=== PATIENT | female | born 1990 | race Caucasian/White ===

== ENCOUNTER 2018-05-03 10:06 | Emergency (ER) | payer BC, MEDICAID ==
[2018-05-03] MEDS ORDERED: 0.9 % SODIUM CHLORIDE 1,000 ML BAG IV ONE (10:11)
[2018-05-03 10:30] LABS: BASO % 0.4 % (0-6); EOS % 2.2 % (0-6); HEMATOCRIT 41.4 % (35.0-47.0); HEMOGLOBIN 14.5 gm/dl (11.6-16.0); LYMPH % 16.2 % (16-45); MEAN CELL VOLUME 83.1 fl (81-97); MEAN CORPUSCULAR HEMOGLOBIN 29.1 pg (27-33); MEAN PLATELET VOLUME 11.4 fl (7.4-10.4); MONO % 4.2 % (0-9); PLATELET COUNT 191 K/uL (130-400); RED BLOOD COUNT 4.98 M/uL (3.80-5.40); RED CELL DISTRIBUTION WIDTH 12.4 % (11.5-14.5); WHITE BLOOD COUNT W/O DIFF 11.6 K/uL (4.2-12.2)
--- NOTE | 2018-05-03 10:30 | Emergency Department Record ---
History of Present Illness - General Chief Complaint: Abdominal Pain Stated Complaint: LOWER ABD PAIN Time Seen by Provider: 05/03/18 10:09 Source: Patient, Family Mode of Arrival: Ambulatory Limitations: No limitations - History of Present Illness Initial Comments: 28 yo female presents with lower abdominal pain for about two days. She is undergoing IVF. She discussed her symptoms with her doctor and was instructed to be evaluated in the ED. The onset of the pain was noon yesterday. The pain initially started severe and has gradually decreased since that time. No vaginal bleeding. No vomiting or diarrhea. She is taking Tylenol for the pain. No fevers. The pain goes across the lower abdomen but is greatest on the right. Last menstrual bleeding was 3 months ago. She has been undergoing IVF since November through the of . The patient has known endometriosis that has been treated in [place] as well. MD Complaint: Abdominal pain Onset/Timin -: Days(s) (2) Location: LLQ, RLQ Radiation: Back Severity: Moderate Severity scale (1-10): 6 Quality: Other Consistency: Constant Improves With: Rest Worsens With: Movement Associated Symptoms: Nausea - Related Data LMP (females 10-50): 3 months ago Patient : No Home Medications Medication Instructions Recorded Confirmed Last Taken Cabergoline 2 tab-cap 05/03/18 2 Days Ago ~05/01/18 Leuprolide Acetate [Lupron Depot 3.75 mg IM 05/03/18 1 Month Ago ([place])] ~04/02/18 Levothyroxine Sodium [Synthroid] 88 mcg PO 05/03/18 1 Day Ago ~05/02/18 Menotropins [Menopur] 150 units 05/03/18 1 Day Ago ~05/02/18 Previous Rx's Medication Instructions Recorded Ondansetron [Zofran Odt] 4 mg PO Q8H #20 tab.rapdis 05/03/18 Allergies Allergy/AdvReac Type Severity Reaction Status Date / Time Sulfa (Sulfonamide Allergy NEUROTOXICI Verified 05/03/18 10:20 Antibiotics) TY Travel Screening - Travel/Exposure Within Last 30 Days Have you traveled within the last 30 days?: No Review of Systems Constitutional: Denies: Chills, Fever, Malaise, Weakness Eyes: Denies: Eye discharge ENT: Denies: Congestion, Throat pain Respiratory: Denies: Cough, Dyspnea, Hemoptysis, Wheezes Cardiovascular: Denies: Chest pain, Palpitations, Syncope Endocrine: Denies: Fatigue, Polydipsia, Polyuria Gastrointestinal: Reports: Abdominal pain. Denies: Diarrhea, Nausea, Vomiting Genitourinary: Reports: As per HPI. 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 negative: Conjunctival injection, Scleral icterus - ENT ENT exam: Normal exam, Mucous membranes moist Ear exam: Normal external inspection Nasal Exam: Normal inspection Mouth exam: Normal external inspection - Neck Neck exam: Normal inspection - Respiratory Respiratory exam: Normal lung sounds bilaterally. negative: Respiratory distress - Cardiovascular Cardiovascular Exam: Regular rate, Normal rhythm, Normal heart sounds - GI/Abdominal GI/Abdominal exam: Soft, Tenderness - Rectal Rectal exam: Deferred - Extremities Extremities exam: Normal inspection - Back Back exam: Reports: Normal inspection, Full ROM. Denies: Rash noted - Neurological Neurological exam: Alert, Oriented X3 - Psychiatric Psychiatric exam: Normal affect, Normal mood. negative: Agitated, Anxious - Skin Skin exam: Dry, Intact, Normal color, Warm Course Vital Signs 05/03/18 10:09 Temperature 98.4 F Pulse Rate 95 H Respiratory 20 Rate Blood Pressure 114/79 Pulse Ox 100 - Reevaluation(s) Reevaluation #1: 05/03/18 10:47 The CBC, CMP and UA were reviewed. No acute process The UCG is negative 05/03/18 11:08 The UA is negative The Wet Prep is negative 05/03/18 12:13 The patient was updated on the labs, UA, and wet prep She is awaiting the US report She requested Tylenol for pain 05/03/18 12:33 The TV pelvic US was reviewed. 9.8cm right hemorrhagic ovarian cyst or endometrioma in the right adnexa. No torsion. Small amount of FF. 05/03/18 12:59 The information was provided to the [facility] hot dog vender Mara. She will discuss with the patient's physician and call back. 05/03/18 13:08 Mara RN called back after discussion with Dr Parry. The patient will be contacted again this afternoon by Dr Parry to arrange further plan of follow up. Medical Decision Making - Lab Data Result diagrams: 05/03/18 10:15 05/03/18 10:15 Disposition Disposition: Discharge Clinical Impression: Pelvic pain, Hemorrhagic cyst of right ovary Ovarian cyst Qualifiers: Laterality: right Qualified Code(s): N83.201 - Unspecified ovarian cyst, right side Disposition: Home, Self-Care Condition: (1) Good Instructions: Ovarian Cyst (ED) Additional Instructions: Call your doctor for the next available follow up appointment and take a copy of the ultrasound that was performed today Be seen immediately for a recheck if worse, any new concerns or questions Take the prescriptions provided as directed Review this ER visit and the tests performed with your fertility doctor Prescriptions: Ondansetron [Zofran Odt] 4 mg PO Q8H #20 tab.rapdis Forms: Patient Portal Access Time of Disposition: 13:09 Quality - Quality Measures Quality Measures: N/A - Blood Pressure Screening Does Patient Have Any of the Following: No Blood Pressure Classification: Normal BP Reading Systolic Measurement: 114 Diastolic Measurement: 79 Screening for High Blood Pressure: < Normal BP, F/U Not Required > [G8783]
[2018-05-03 10:42] LABS: BLOOD UREA NITROGEN 17 mg/dL (6-20); CREATININE 0.7 mg/dL (0.5-0.9); EST GLOMERULAR FILTRATION RATE > 60 mL/min; LIPASE 29 U/L (13-60); TOTAL PROTEIN 7.5 g/dL (6.6-8.7)
[2018-05-03 10:43] LABS: URINE APPEARANCE CLEAR; URINE BILIRUBIN NEGATIVE (NEGATIVE); URINE BLOOD NEGATIVE (NEGATIVE); URINE COLOR YELLOW; URINE GLUCOSE (UA) NEGATIVE (NEGATIVE); URINE KETONE NEGATIVE (NEGATIVE); URINE LEUKOCYTE ESTERASE NEGATIVE (NEGATIVE); URINE NITRITE NEGATIVE (NEGATIVE); URINE PROTEIN NEGATIVE (NEGATIVE); URINE UROBILINOGEN 0.2 E.U./dL (0.20 - 1.00)
[2018-05-03 10:44] LABS: GLUCOSE,RANDOM 85 mg/dL (74-109)
[2018-05-03 10:45] LABS: HCG,QUALITATIVE URINE NEGATIVE (NEGATIVE)
[2018-05-03 10:47] LABS: ALB/GLOB RATIO 1.3 (1.1-1.8); ALBUMIN 4.2 g/dL (4.0-5.0); ALKALINE PHOSPHATASE 71 U/L (45-87); ALT/SGPT 9 U/L (<33); AST/SGOT 11 U/L (10.0-35.0)
[2018-05-03] MEDS ORDERED: ACETAMINOPHEN 500 MG TABLET PO ONE (11:59)
[2018-05-03] MEDS ORDERED: ONDANSETRON 4 MG ODT TABLET SL ONE (13:10)
[2018-05-04 09:36] LABS: GC SPECIMEN TYPE Vaginal
--- NOTE | 2018-05-06 08:34 | ULTRASOUND REPORT ---
EXAM: ULTRASOUND PELVIC W TRANSVAG (NON-OB) HISTORY: PELVIC PAIN. HISTORY OF ENDOMETRIOSIS. PATIENT RECEIVED MEDICATION FOR IN VITRO FERTILIZATION ONE WEEK AGO. ON [place] SINCE JANUARY. TECHNIQUE: Sonographic evaluation was performed using transabdominal and transvaginal probes. COMPARISON: None. FINDINGS: The uterus is anteverted in position and measures 8.1 x 6 x 8.2 cm. The myometrium and endometrium are poorly visualized. No discrete myometrial abnormality is identified. The endometrium measures approximately 3 mm in thickness. There is a complex cystic mass within the right adnexa measuring 9.6 x 8.2 x 6.4 cm. This demonstrates low-level internal echoes throughout. The appearance suggests a hemorrhagic ovarian cyst or endometrioma. A couple of normal-appearing ovarian follicles are present immediately adjacent to the complex cyst. There is a small amount of free fluid within the pelvis. The left ovary contains small functional follicles and measures 2.7 x 2.4 x 3.8 cm. TRANSVAGINAL SCAN: The myometrium is normal in appearance. The endometrium is normal in thickness measuring 9 mm. There are no abnormal endometrial fluid collections. The left ovary is normal in appearance and size measuring 1.6 x 1.5 x 3.1 cm. Simple-appearing small follicles are present within the left ovary. The right ovary contains a cystic complex mass measuring 9.8 x 6.2 x 8.9 cm. This demonstrates low-level internal echoes throughout suggesting a hemorrhagic cyst or endometrioma. The adjacent ovarian tissue appears normal. Exact measurements of the right ovary are difficult due to the size of the hemorrhagic cyst. A small amount of free fluid is present within the pelvis. Duplex Doppler ultrasound was performed to assess for ovarian torsion. Color- Doppler images show symmetric flow within both ovaries. Intraovarian spectral venous and arterial waveforms are symmetric and demonstrate unremarkable, uncorrected velocities. There is no ovarian torsion. IMPRESSION: 1. HEMORRHAGIC CYST OR ENDOMETRIOMA WITHIN THE RIGHT ADNEXA MEASURING 9.8 X 6.2 X 8.9 CM. A SMALL AMOUNT OF FREE FLUID IS ALSO PRESENT WITHIN THE RIGHT ADNEXA. 2. NORMAL UTERUS AND LEFT OVARY. 3. THERE IS NO TORSION. JOB NUMBER: [id number] [facility]
== END 2018-05-03 13:20 | disposition home or self-care (01) ==
LOC: ER 10:06
DX: N83.201 Unspecified ovarian cyst, right side (principal); R10.2 Pelvic and perineal pain; R11.0 Nausea; R10.84 Generalized abdominal pain
CPT/HCPCS: 76830; 76856; 80053; 81003; 81025; 83690; 85025; 87210; 99284; J7030